=== PATIENT | male | born 1955 | race African-American/Black ===

== ENCOUNTER 2017-03-27 20:40 | Inpatient (IN) | payer BC ==
--- NOTE | 2017-03-27 21:00 | PDOC ---
History of Present Illness - General History Source: Patient, Spouse Exam Limitations: No Limitations - History of Present Illness Initial Comments: 03/27/17 21:20 The patient is a 62 year old male with a significant PMH of recent pacemaker placement (03/04/2017) who presents to the emergency department with a head laceration s/p dizziness and fall shortly before arrival. The patient reports getting up from his couch after hours of watching TV and feeling lightheaded and dizzy, causing him to fall and hit his head on the TV stand. He reports not remembering the impact and waking up on the floor holding his head shortly after the fall. The patient reports having a pacemaker placed on 03/04/2017 and being placed on blood thinners (Prasugrel) for an upcoming cardiac catheterization. The patient denies taking any alcohol or drugs prior to the fall. The patient denies eating dinner before arrival. The patient denies chest pain, shortness of breath, and headache. Denies fever, chills, nausea, vomit, diarrhea and constipation. Denies dysuria, frequency, urgency and hematuria. Allergies: NKA Past surgical history: Pacemaker placement (03/04). Social history: No reported cigarette, alcohol, or drug use. Pacemaker: [place] [employer] Pacemaker [id number] Serial No. [id number] (Ref #: ) PCP: Dr. Jamila Pedro Graphic Production Artist: Dr. Yuan Bettencourt <Ashutosh Cannon - Last Filed: 03/27/17 23:51> <Samanta Mcfadden - Last Filed: 03/28/17 00:31> - General Chief Complaint: Syncope/Near Syncope Stated Complaint: FAINTED Time Seen by Provider: 03/27/17 20:50 Past History <Ashutosh Cannon - Last Filed: 03/27/17 23:51> - Past Medical History COPD: No HTN: Yes Hypercholesterolemia: Yes - Surgical History Cardiac Surgery: Yes (pacemaker 03/15/17) - Suicide/Smoking/Psychosocial Hx Smoking History: Never smoked <Samanta Mcfadden - Last Filed: 03/28/17 00:31> - Past Medical History Allergies/Adverse Reactions: Allergies Allergy/AdvReac Type Severity Reaction Status Date / Time No Known Allergies Allergy Verified 03/27/17 20:43 Home Medications: Ambulatory Orders Atorvastatin Ca [Lipitor] 40 mg PO HS 11/26/17 Carvedilol [Coreg -] 3.125 mg PO BID 03/27/17 Prasugrel Hydrochloride [Effient -] 10 mg PO DAILY 03/27/17 Review of Systems - Review of Systems Able to Perform ROS?: Yes Comments:: 03/27/17 21:21 GENERAL/CONSTITUTIONAL: No fever or chills. No weakness. HEAD, EYES, EARS, NOSE AND THROAT: (+) Back of head laceration. No change in vision. No ear pain or discharge. No sore throat. CARDIOVASCULAR: No chest pain or shortness of breath. RESPIRATORY: No cough, wheezing, or hemoptysis. GASTROINTESTINAL: No nausea, vomiting, diarrhea or constipation. GENITOURINARY: No dysuria, frequency, or change in urination. MUSCULOSKELETAL: No joint or muscle swelling or pain. No neck or back pain. SKIN: No rash NEUROLOGIC: (+) Dizziness. (+) Loss of consciousness. No headache, vertigo, or change in strength/sensation. ENDOCRINE: No increased thirst. No abnormal weight change. HEMATOLOGIC/LYMPHATIC: No anemia, easy bleeding, or history of blood clots. ALLERGIC/IMMUNOLOGIC: No hives or skin allergy. <Ashutosh Cannon - Last Filed: 03/27/17 23:51> *Physical Exam - Vital Signs Last Vital Signs Temp Pulse Resp BP Pulse Ox 98.1 F 134 H 18 102/80 97 03/27/17 20:47 03/27/17 20:47 03/27/17 20:47 03/27/17 20:47 03/27/17 20:47 - Physical Exam Comments: 03/27/17 21:21 GENERAL: Awake, alert, and fully oriented, in no acute distress HEAD: (+) 3 in. linear horizontal occipital laceration. EYES: PERRLA, EOMI, sclera anicteric, conjunctiva clear ENT: Auricles normal inspection, hearing grossly normal, nares patent, oropharynx clear without exudates. Moist mucosa NECK: Normal ROM, supple, no lymphadenopathy, JVD, or masses LUNGS: Breath sounds equal, clear to auscultation bilaterally. No wheezes, and no crackles HEART: Regular rate and rhythm, normal S1 and S2, no murmurs, rubs or gallops ABDOMEN: Soft, nontender, normoactive bowel sounds. No guarding, no rebound. No masses EXTREMITIES: Normal range of motion, no edema. No clubbing or cyanosis. No cords, erythema, or tenderness NEUROLOGICAL: Cranial nerves II through XII grossly intact. Normal speech. SKIN: Warm, Dry, normal turgor, no rashes or lesions noted. <Ashutosh Cannon - Last Filed: 03/27/17 23:51> - Vital Signs Last Vital Signs Temp Pulse Resp BP Pulse Ox 98.1 F 134 H 18 102/80 97 03/27/17 20:47 03/27/17 20:47 03/27/17 20:47 03/27/17 20:47 03/27/17 20:47 <Samanta Mcfadden - Last Filed: 03/28/17 00:31> Procedures - Laceration/Wound Repair Posterior Head Wound Length: 2.6 to 5.0 cm Wound's Depth, Shape: into muscle, linear Irrigated w/ Saline: Yes Betadine Prep: Yes Anesthesia: 1% Lidocaine w/ Epi Amount of Anesthetic (ccs): 10 Wound Repaired With: Sutures Suture Size/Type: 3:0, nylon Number of Sutures: 8 Layer Closure: No Sterile Dressing Applied: Yes <Samanta Mcfadden - Last Filed: 03/28/17 00:31> Heart Score/ECG Review #1 03/27/17 22:00 Vent rate 135 bpm Atrial flutter with 2:1 AV conduction Incomplete right bundle branch block ST & T wave abnormality, consider inferior ischemia ST & T wave abnormality, consider anterior ischemia Abnormal ECG <Ashutosh Cannon - Last Filed: 03/27/17 23:51> ED Treatment Course - LABORATORY CBC & Chemistry Diagram: 03/27/17 21:30 03/27/17 21:30 <Ashutosh Cannon - Last Filed: 03/27/17 23:51> - LABORATORY CBC & Chemistry Diagram: 03/27/17 21:30 03/27/17 21:30 <Samanta Mcfadden - Last Filed: 03/28/17 00:31> Medical Decision Making - Medical Decision Making 03/27/17 21:12 Pt had pacemaker placed on Mar 04; I called the [employer] [facility] to come and query the pacemaker. 03/27/17 21:13 Pt was sitting for hours watching TV, got up to go to bed. Next thing he knows he was on the floor after whacking his occiput on the corner of the TV stand. Unclear if he lost consciousness. Pt has a pacemaker and he is on prasugrel. Pt is due to have a cardiac catheterization - however he is awaiting his new medical insurance to go thru. Pt is hypotensive in the ER, systolic 103; states that he didn't have anything to eat today. 03/27/17 22:25 Pt has rapid afib; but he is hypotensive. We will start with a liter of saline 03/27/17 22: Pt's labs are normal. Pt awaiting Ct scan results. 03/27/17 23:28 Patient Name: VIDA VALENZUELA THIS IS A PRELIMINARY REPORT FROM [employer] CLAIMS REPRESENTATIVE DATE OF SERVICE: 2017-03-27 22:23:53 IMAGES: 155 EXAM: CT head without contrast HISTORY: Rule out bleed. Syncope. Laceration. COMPARISON: None. FINDINGS: 1. 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 White matter changes likely represent changes of chronic post ischemic demyelination/small vessel disease. There is no evidence of intracranial hemorrhage or mass effect. If there is a clinical suspicion of acute cerebral ischemia, MRI of brain would be helpful. 2. The ventricles are normal size. 3. The visualized portions of the orbits, paranasal and mastoid sinuses are notable for partial opacification of the right mastoid sinus There is partial absence of the nasal septum. 4. There is no evidence of acute fracture. 5. There is left occipital scalp soft tissue swelling/hematoma. THIS DOCUMENT HAS BEEN ELECTRONICALLY SIGNED 03/27/17 23:29 Patient Name: VIDA VALENZUELA THIS IS A PRELIMINARY REPORT FROM [employer] CLAIM[employer] REPRESENTATIVE DATE OF SERVICE: 2017-03-27 22:20:45 IMAGES: 295 EXAM: CT CERVICAL SPINE HISTORY: Fracture COMPARISON: None. FINDINGS: Straightening of the curvature. No acute fracture, subluxation or abnormal prevertebral soft tissue swelling noted. Facet joints intact and normally aligned. Spinous processes intact. Underlying degenerative disc disease most severe at C5-6 with severe disc space narrowing and broad based disc herniation indenting the thecal sac and likely causing central spinal stenosis. Mild bilateral neuroforaminal narrowing at C5-6. No neck soft tissue hemorrhage or edema seen. No pneumothorax in the lung apices. Pacemaker wires seen. THIS DOCUMENT HAS BEEN ELECTRONICALLY SIGNED <Samanta Mcfadden - Last Filed: 03/28/17 00:31> *DC/Admit/Observation/Transfer - Attestations Scribe Attestion: 03/27/17 21:22 Documentation prepared by Ashutosh Cannon, acting as adjunct faculty for medical terminology for Samanta Mcfadden MD. <Ashutosh Cannon - Last Filed: 03/27/17 23:51> - Discharge Dispostion Admit: Yes <Samanta Mcfadden - Last Filed: 03/28/17 00:31> Diagnosis at time of Disposition: Syncope, Scalp laceration, Pacemaker, Atrial flutter, Dehydration - Discharge Dispostion Condition at time of disposition: Guarded - Referrals Referrals: STAFF,NOT ON [Primary Care Provider] -
[2017-03-27 21:45] LABS: BASOPHIL 0.8 % (0-2.0); EOSINOPHIL 3.7 % (0-4.5); MCH 29.7 pg (25.7-33.7); MCHC 34.2 g/dl (32.0-35.9); MEAN CELL VOLUME 86.7 fl (80-96); MEAN PLT VOLUME 8.1 fl (7.5-11.1); NEUTROPHILS 70.3 % (42.8-82.8); PLATELET COUNT 249 K/MM3 (134-434); RDW 13.8 % (11.9-15.9); WHITE BLOOD COUNT 7.7 K/mm3 (4.0-10.0)
[2017-03-27] MEDS ORDERED: SODIUM CHLORIDE 0.9% 500 ML INFUS.BAG IV ONE (21:53)
[2017-03-27 22:06] LABS: INR 1.07 (0.82-1.09); PROTHROMBIN TIME (PATIENT) 12.1 SEC (9.98-11.88)
[2017-03-27 22:08] LABS: ALBUMIN 3.4 g/dl (3.4-5.0); ANION GAP 5 (8-16); BILIRUBIN,TOTAL 0.3 mg/dL (0.2-1.0); CALCIUM 8.2 mg/dL (8.5-10.1); CO2 26 mmol/L (21-32); CREATININE 1.3 mg/dL (0.7-1.3); GLUCOSE,RANDOM 113 mg/dL (74-106); SGOT/AST 32 U/L (15-37); SGPT/ALT 49 U/L (12-78); TOT PROT 7.4 g/dl (6.4-8.2)
[2017-03-27 22:11] LABS: ALK PHOS 89 U/L (45-117); CPK 167 IU/L (39-308); TROPONIN I 0.02 ng/ml (0.00-0.05)
[2017-03-27] MEDS ORDERED: LIDOCAINE 1%/EPI 1:100000 (20 ML MULTI DOSE VIAL) ONE (22:43)
--- NOTE | 2017-03-28 00:40 | PN ---
Teaching Attending Note Name of Resident: Zelalem Marcus ATTENDING PHYSICIAN STATEMENT I saw and evaluated the patient. I reviewed the resident's note and discussed the case with the resident. I agree with the resident's findings and plan as documented. SUBJECTIVE: 62 M with pmhx of HTN and HLD who had recent PPM placement 03/04, who presents post syncope. States he went to [facility] 03/03 for shortness of breath and had nuclear stress there which was abnormal and was supposed to have a cath done 04/07 (didn't have it done earlier due to insurance reasons.) States he is not sure why the PPM was placed, but noted he had been placed on Effient after. Noted Chest Pain on 03/03, but none after. States he was getting up from a chair when he felt dizzy, states he then hit his head on his table. No chest pain, pressure or palpitations prior to incident. No fevers, or chills. No headaches or lightheadedness. No N/V/D. States he did not eat much food today. Pacemaker: [place] [email or web address] Pacemaker [id number] Serial No. [id number] -Ref #: PCP: Dr. Jamila Pedro Circus Train Supervisor: Dr. Yuan Bettencourt OBJECTIVE: Physical: VS: Vital Signs Period Temp Pulse Resp BP Sys/Law Pulse Ox Last 24 Hr 98.1 F 134 18 102/80 97 GEN: NAD, Resting in bed, able to speak full sentences HEENT: NCAT, PERRL, Throat without erythema or exudates CARD: TachyRRR S1, S2, PPM on L. Chest RESP: CTAB ABD: BSX4, NTD to palpation EXT: - C/C??E CBCD WBC 7.7 K/mm3 (4.0-10.0) 03/27/17 21:30 RBC 4.61 M/mm3 (4.00-5.60) 03/27/17 21:30 Hgb 13.7 GM/dL (11.7-16.9) 03/27/17 21:30 Hct 40.0 % (35.4-49) 03/27/17 21:30 MCV 86.7 fl (80-96) 03/27/17 21:30 MCHC 34.2 g/dl (32.0-35.9) 03/27/17 21:30 RDW 13.8 % (11.9-15.9) 03/27/17 21:30 Plt Count 249 K/MM3 (134-434) 03/27/17 21:30 MPV 8.1 fl (7.5-11.1) 03/27/17 21:30 CMP Sodium 138 mmol/L (136-145) 03/27/17 21:30 Potassium 4.3 mmol/L (3.5-5.1) 03/27/17 21:30 Chloride 107 mmol/L (98-107) 03/27/17 21:30 Carbon Dioxide 26 mmol/L (21-32) 03/27/17 21:30 Anion Gap 5 (8-16) L 03/27/17 21:30 BUN 18 mg/dL (7-18) 03/27/17 21:30 Creatinine 1.3 mg/dL (0.7-1.3) 03/27/17 21:30 Creat Clearance w eGFR 56.12 (>60) 03/27/17 21:30 Random Glucose 113 mg/dL (74-106) H 03/27/17 21:30 Calcium 8.2 mg/dL (8.5-10.1) L 03/27/17 21:30 Total Bilirubin 0.3 mg/dL (0.2-1.0) 03/27/17 21:30 AST 32 U/L (15-37) 03/27/17 21:30 ALT 49 U/L (12-78) 03/27/17 21:30 Alkaline Phosphatase 89 U/L (45-117) 03/27/17 21:30 Total Protein 7.4 g/dl (6.4-8.2) 03/27/17 21:30 Albumin 3.4 g/dl (3.4-5.0) 03/27/17 21:30 CARDIAC ENZYMES Creatine Kinase 167 IU/L (39-308) 03/27/17 21:30 Troponin I 0.02 ng/ml (0.00-0.05) 03/27/17 21:30 EKG 136 A flutter 2:1, Incomplete right bundle branch block ST & T wave abnormality, consider inferior ischemia ST & T wave abnormality, consider anterior ischemia CXR: PPM in L. chest, no acute process CT HEAD/C- SPINE:FINDINGS: 1. 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 White matter changes likely represent changes of chronic post ischemic demyelination/small vessel disease. There is no evidence of intracranial hemorrhage or mass effect. If there is a clinical suspicion of acute cerebral ischemia, MRI of brain would be helpful. 2. The ventricles are normal size. 3. The visualized portions of the orbits, paranasal and mastoid sinuses are notable for partial opacification of the right mastoid sinus There is partial absence of the nasal septum. 4. There is no evidence of acute fracture. 5. There is left occipital scalp soft tissue swelling/hematoma. Straightening of the curvature. No acute fracture, subluxation or abnormal prevertebral soft tissue swelling noted. Facet joints intact and normally aligned. Spinous processes intact. Underlying degenerative disc disease most severe at C5-6 with severe disc space narrowing and broad based disc herniation indenting the thecal sac and likely causing central spinal stenosis. Mild bilateral neuroforaminal narrowing at C5-6. No neck soft tissue hemorrhage or edema seen. No pneumothorax in the lung apices. Pacemaker wires seN ELECTRONICALLY SIGNED ASSESSMENT AND PLAN: 62 M with pmhx of HTN and HLD who had recent PPM placement 03/04, who presents with loss of concioussness, being admitted for syncope 1.) Syncope- DDx: Cardiogenic vs Neurogenic/vagal - Orthostatic VS - Trend troponin/EKG - Echo/Carotid US - Cardiology consult - Repeat CT - Need Nuclear Stress results from prior hospital - TSH 2.) Head Laceration - Hold Effient - Repeat CT in 12 hours 3.) HLD - C/W Statin 4.) A- Flutter - BB, Echo 4.) HTN - Home meds with Hold orders 5.) Dvt Ppx - SCds
--- NOTE | 2017-03-28 01:21 | HP ---
CHIEF COMPLAINT: Syncope PCP:Dr. Jamila Pedro [employer]bestos Cement Sheet Supervisor: Dr. Yuan Bettencourt HISTORY OF PRESENT ILLNESS: 62 year old male with past medical history of pacemaker placement on 03/04/2017 who presented to the hospital status post a syncopal episode. Patient states he got up from his couch after watching TV and felt dizzy. Patient fell and hit is head on his tv stand. Patient does not remember falling, but states he did not lose consciousness. Patient also states he has not eaten all day. Patient went to [facility] on 03/03 for CP and SOB. Patient had pacemaker placement at that time and has been on Effiant (prasurgel) since. He also had a positive stress test and is scheduled for cardiac catheterization but is waiting for his medical insurance card prior to clearance. Patient denies fever, chills, chest pain, shortness of breath, palpitations, and diaphoresis. ER course was notable for: (1) EKG- Atrial flutter with 2 to 1 conduction. QTC 465, HR 130's (2) CBC, CMP, troponin unremarkable (3) CT head and cervical spine unremarkable Recent Travel: denies PAST MEDICAL HISTORY: As per HPI PAST SURGICAL HISTORY: Appendectomy At age 16 Social History: Smoking: denies Alcohol: denies Drugs: denies Family History: Allergies No Known Allergies Allergy (Verified 03/27/17 20:43) HOME MEDICATIONS: Home Medications Medication Instructions Recorded Atorvastatin Ca [Lipitor] 40 mg PO HS 03/27/17 Carvedilol [Coreg -] 3.125 mg PO BID 03/27/17 Prasugrel Hydrochloride [Effient -] 10 mg PO DAILY 03/27/17 REVIEW OF SYSTEMS CONSTITUTIONAL: Absent: fever, chills, diaphoresis, generalized weakness, malaise, loss of appetite, weight change HEENT: Absent: rhinorrhea, nasal congestion, throat pain, throat swelling, difficulty swallowing, mouth swelling, ear pain, eye pain, visual changes CARDIOVASCULAR: Absent: chest pain, syncope, palpitations, irregular heart rate, lightheadedness , peripheral edema RESPIRATORY: Absent: cough, shortness of breath, dyspnea with exertion, orthopnea, wheezing, stridor, hemoptysis GASTROINTESTINAL: Absent: abdominal pain, abdominal distension, nausea, vomiting, diarrhea, constipation, melena, hematochezia GENITOURINARY: Absent: dysuria, frequency, urgency, hesitancy, hematuria, flank pain, genital pain MUSCULOSKELETAL: Absent: myalgia, arthralgia, joint swelling, back pain, neck pain SKIN: Absent: rash, itching, pallor HEMATOLOGIC/IMMUNOLOGIC: Absent: easy bleeding, easy bruising, lymphadenopathy, frequent infections ENDOCRINE: Absent: unexplained weight gain, unexplained weight loss, heat intolerance, cold intolerance NEUROLOGIC: Absent: headache, focal weakness or paresthesias, dizziness, unsteady gait, seizure, mental status changes, bladder or bowel incontinence PSYCHIATRIC: Absent: anxiety, depression, suicidal or homicidal ideation, hallucinations. PHYSICAL EXAMINATION Vital Signs - 24 hr 03/27/17 20:47 Temperature 98.1 F Pulse Rate 134 H Respiratory 18 Rate Blood Pressure 102/80 O2 Sat by Pulse 97 Oximetry (%) GENERAL: Awake, alert, and fully oriented, in no acute distress. HEAD: Normal with no signs of trauma. EYES: Pupils equal, round and reactive to light, extraocular movements intact, sclera anicteric, conjunctiva clear. No lid lag. EARS, NOSE, THROAT: Ears normal, nares patent, oropharynx clear without exudates. Moist mucous membranes. NECK: Normal range of motion, supple without lymphadenopathy, JVD, or masses. LUNGS: Breath sounds equal, clear to auscultation bilaterally. No wheezes, and no crackles. No accessory muscle use. HEART: Tachycardic, normal S1 and S2 without murmur, rub or gallop. Pacemaker placed on chest, c/d/i ABDOMEN: Soft, nontender, not distended, normoactive bowel sounds, no guarding, no rebound, no masses. No hepatomegaly or splenomegaly. MUSCULOSKELETAL: Normal range of motion at all joints. No bony deformities or tenderness. No CVA tenderness. UPPER EXTREMITIES: 2+ pulses, warm, well-perfused. No cyanosis. No clubbing. No peripheral edema. LOWER EXTREMITIES: 2+ pulses, warm, well-perfused. No calf tenderness. No peripheral edema. NEUROLOGICAL: Cranial nerves II-XII intact. Normal speech. Normal gait. PSYCHIATRIC: Cooperative. Good eye contact. Appropriate mood and affect. SKIN: Warm, dry, normal turgor, no rashes or lesions noted, normal capillary refill. Laboratory Results - last 24 hr 11/26/17 11/26/17 11/26/17 21:30 21:30 21:30 WBC 7.7 RBC 4.61 Hgb 13.7 Hct 40.0 MCV 86.7 MCH 29.7 MCHC 34.2 RDW 13.8 Plt Count 249 MPV 8.1 Neutrophils % 70.3 Lymphocytes % 11.9 Monocytes % 13.3 H Eosinophils % 3.7 Basophils % 0.8 PT with INR 12.10 H INR 1.07 PTT (Actin FS) 32.1 Sodium Potassium Chloride Carbon Dioxide Anion Gap BUN Creatinine Creat Clearance w eGFR Random Glucose Calcium Total Bilirubin AST ALT Alkaline Phosphatase Creatine Kinase Creatine Kinase Index CK-MB (CK-2) Troponin I Total Protein Albumin 03/27/17 21:30 WBC RBC Hgb Hct MCV MCH MCHC RDW Plt Count MPV Neutrophils % Lymphocytes % Monocytes % Eosinophils % Basophils % PT with INR INR PTT (Actin FS) Sodium 138 Potassium 4.3 Chloride 107 Carbon Dioxide 26 Anion Gap 5 L BUN 18 Creatinine 1.3 Creat Clearance w eGFR 56.12 Random Glucose 113 H Calcium 8.2 L Total Bilirubin 0.3 AST 32 ALT 49 Alkaline Phosphatase 89 Creatine Kinase 167 Creatine Kinase Index 1.2 CK-MB (CK-2) 2.119 Troponin I 0.02 Total Protein 7.4 Albumin 3.4 ASSESSMENT/PLAN: 62-year-old male with past medical history of the pacemaker placement in March of this year and positive stress test admitted for syncopal episode. #Syncope with head trauma, Cardiogenic vs vasovagal -Repeat CT head in the morning -Orthostatic vital signs -Echocardiogram -Carotid Doppler -Lipid profile -Trend troponins and EKG x 3 -Cardiology consult, Dr. Scott -Obtain records from [facility] regarding pacemaker placement, Stress test, and reason for anticoagulation. -Hold Prasugrel at this time given head trauma -Continue Coreg 3.125 mg and Lipitor 40 mg po HS #FEN/GI -No fluids indicated at this time -Electrolytes within normal limits -Sodium controlled diet #PPx -SCDs both legs -No G.I. prophylaxis indicated Visit type - Emergency Visit Emergency Visit: Yes Care time: The patient presented to the Emergency Department on the above date and was hospitalized for further evaluation of their emergent condition. - New Patient This patient is new to me today: Yes Date on this admission: 03/28/17 - Critical Care Critical Care patient: No
[2017-03-28] MEDS ORDERED: CARVEDILOL 3.125 MG TABLET (FP) PO SCH ×2 (01:23→10:00)
[2017-03-28] MEDS ORDERED: METOPROLOL TARTRATE 25 MG TABLET (FP) PO ONE (01:24)
[2017-03-28] MEDS ORDERED: METOPROLOL TARTRATE 25 MG TABLET (FP) ONE (01:33)
[2017-03-28 06:46] LABS: BASOPHIL 0.4 % (0-2.0); MCHC 33.6 g/dl (32.0-35.9); MEAN CELL VOLUME 86.3 fl (80-96); MEAN PLT VOLUME 8.1 fl (7.5-11.1); NEUTROPHILS 77.8 % (42.8-82.8); PLATELET COUNT 242 K/MM3 (134-434); RDW 13.9 % (11.9-15.9); WHITE BLOOD COUNT 11.8 K/mm3 (4.0-10.0)
[2017-03-28 07:07] LABS: ANION GAP 7 (8-16); CALCIUM 8.1 mg/dL (8.5-10.1); CO2 26 mmol/L (21-32); GLUCOSE,RANDOM 90 mg/dL (74-106)
[2017-03-28 07:13] LABS: CHOLESTEROL 157 mg/dL (50-200)
--- NOTE | 2017-03-28 11:45 | CON.CARD ---
Consult Consult Specialty:: Cardiology Referred by:: Hospitalist Medicine Reason for Consultation:: Syncope - History of Present Illness Chief Complaint: Syncope History of Present Illness: 62 M with pmhx of CAD with abnl MPI, HTN, HLD, AV block s/p PPM placement 2016, who presents post syncope preceded by typical prodromal sxs of nausea, dizziness, diaphoresis and flushing without visual scotoma after getting up from seated position, sustained closed head trauma, HCT negative. States he went to [facility] 03/03 for shortness of breath and had nuclear stress there which was abnormal and was supposed to have a cath done 04/07 (didn't have it done earlier due to insurance reasons.) He denies associated chest pain, pressure or palpitations, orthopnea, PND or LE edema. Pacer interrogation unrevealing for events. Pacemaker: [employer] Pacemaker [id number] Serial No. [id number] -Ref #: PCP: Dr. Jamila Pedro [employer] Pilot: Dr. Yuan Bettencourt - History Source History Provided By: Patient Limitations to Obtaining History: No Limitations - Past Medical History Cardio/Vascular: Yes: CAD - Past Surgical History Past Surgical History: Yes: Permanent Pacemaker - Smoking History Smoking history: Never smoked Home Medications - Allergies Allergies/Adverse Reactions: Allergies Allergy/AdvReac Type Severity Reaction Status Date / Time No Known Allergies Allergy Verified 03/27/17 20:43 - Home Medications Home Medications: Ambulatory Orders Atorvastatin Ca [Lipitor] 40 mg PO HS 03/27/17 Carvedilol [Coreg -] 3.125 mg PO BID 03/27/17 Prasugrel Hydrochloride [Effient -] 10 mg PO DAILY 03/27/17 Review of Systems - Review of Systems Constitutional: reports: Diaphoresis Gastrointestinal: reports: Nausea Neurological: reports: Dizziness, Syncope Vital Signs: Vital Signs Temperature 98.4 F 03/28/17 08:30 Pulse Rate 85 03/28/17 08:30 Respiratory Rate 20 03/28/17 08:30 Blood Pressure 124/60 03/28/17 08:30 O2 Sat by Pulse Oximetry (%) 96 03/28/17 08:30 Constitutional: Yes: No Distress, Calm Neck: Yes: Supple Respiratory: Yes: Regular, CTA Bilaterally Gastrointestinal: Yes: Normal Bowel Sounds, Soft Cardiovascular: Yes: Regular Rate and Rhythm JVD: No Carotid Bruit: No Heart Sounds: Yes: S1, S2 Edema: No - Other Data Labs, Other Data: CBC, BMP 03/28/17 06:05 03/28/17 06:05 INR, PTT INR 1.07 (0.82-1.09) 03/27/17 21:30 Troponin, BNP 03/27/17 03/28/17 03/28/17 21:30 02:20 06:05 Troponin I 0.02 < 0.02 < 0.02 Troponin, BNP 03/27/17 03/28/17 03/28/17 21:30 02:20 06:05 Troponin I 0.02 < 0.02 < 0.02 EKG 136 A flutter 2:1, Incomplete right bundle branch block Imaging - Results Chest X-ray: Report Reviewed (CXR: PPM in L. chest, no acute process) Cat Scan: Report Reviewed (CT HEAD/C- SPINE:FINDINGS: 1. 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 White matter changes likely represent changes of chronic post ischemic demyelination/small vessel disease. There is no evidence of intracranial hemorrhage or mass effect. If there is a clinical suspicion of acute cerebral ischemia, MRI of brain would be helpful. 2. The ventricles are normal size. 3. The visualized portions of the orbits, paranasal and mastoid sinuses are notable for partial opacification of the right mastoid sinus There is partial absence of the nasal septum. 4. There is no evidence of acute fracture. 5. There is left occipital scalp soft tissue swelling/hematoma. Straightening of the curvature. No acute fracture, subluxation or abnormal prevertebral soft tissue swelling noted. Facet joints intact and normally aligned. Spinous processes intact. Underlying degenerative disc disease most severe at C5-6 with severe disc space narrowing and broad based disc herniation indenting the thecal sac and likely causing central spinal stenosis. Mild bilateral neuroforaminal narrowing at C5-6. No neck soft tissue hemorrhage or edema seen. No pneumothorax in the lung apices. Pacemaker wires seN ELECTRONICALLY SIGNED) Ultrasound: Report Reviewed (carotid U/S - Negative for stenosis) EKG: Report Reviewed (EKG: Rapid aflutter @ 135) Problem List - Problems (1) Cerebrovascular disease Code(s): I67.9 - CEREBROVASCULAR DISEASE, UNSPECIFIED (2) Hypertensive cardiomyopathy Code(s): I11.9 - HYPERTENSIVE HEART DISEASE WITHOUT HEART FAILURE; I43 - CARDIOMYOPATHY IN DISEASES CLASSIFIED ELSEWHERE Qualifiers: Heart failure presence: without heart failure Qualified Code(s): I11.9 - Hypertensive heart disease without heart failure; I43 - Cardiomyopathy in diseases classified elsewhere; I43 - Cardiomyopathy in diseases classified elsewhere; I43 - Cardiomyopathy in diseases classified elsewhere; I43 - Cardiomyopathy in diseases classified elsewhere (3) Hyperlipidemia Code(s): E78.5 - HYPERLIPIDEMIA, UNSPECIFIED Qualifiers: Hyperlipidemia type: pure hypercholesterolemia Qualified Code(s): E78.00 - Pure hypercholesterolemia, unspecified; E78.0 - Pure hypercholesterolemia (4) Coronary artery disease Code(s): I25.10 - ATHSCL HEART DISEASE OF [place] CORONARY ARTERY W/O ANG PCTRS Qualifiers: Coronary Disease-Associated Artery/Lesion type: [place] artery [place] vs. transplanted heart: [place] heart Associated angina: without angina Qualified Code(s): I25.10 - Atherosclerotic heart disease of [place] coronary artery without angina pectoris (5) Abnormal pharmacologic myocardial perfusion study Code(s): R94.30 - ABNORMAL RESULT OF CARDIOVASCULAR FUNCTION STUDY, UNSP (6) Pacemaker Code(s): Z95.0 - PRESENCE OF CARDIAC PACEMAKER (7) Scalp laceration Code(s): S01.01XA - LACERATION WITHOUT FOREIGN BODY OF SCALP, INITIAL ENCOUNTER Qualifiers: Encounter type: subsequent encounter Qualified Code(s): S01.01XD - Laceration without foreign body of scalp, subsequent encounter (8) Syncope Code(s): R55 - SYNCOPE AND COLLAPSE Qualifiers: Syncope type: vasovagal syncope Qualified Code(s): R55 - Syncope and collapse (9) Paroxysmal atrial flutter Code(s): I48.92 - UNSPECIFIED ATRIAL FLUTTER (10) Symptomatic advanced heart block Code(s): I44.1 - ATRIOVENTRICULAR BLOCK, SECOND DEGREE Assessment/Plan 1. Syncope with typical prodromal sxs c/w vasovagal etiology 2. Cerebrovascular disease 3. CAD, abnormal MPI 4. Closed head trauma with neg HCT x 2 5. HTN/HCVD 6. Hyperlipidemia 7. AV block s/p PPM 03/04/2017 8. Paroxysmal rapid atrial flutter->SR [id number] P:1. Check orthostatic VS, ruled out for MT, f/u echocardiogram already ordered , check TSH and lipid panel 2. Increase carvedilol 6.25 bid, continue Lipitor 40 qhs, change Effient to Eliquis 5 bid given elevated stroke risk score 3. Patient to f/u with Dr. Bettencourt for [facility] to assess severity of CAD at [facility] , PPM f/u and possible aflutter ablation with Dr. Daryl Vaughn at [facility]. 4. Thank you for consultative opportunity
--- NOTE | 2017-03-28 13:36 | EKG ---
Test Reason : Blood Pressure : / mmHG Vent. Rate : 077 BPM Atrial Rate : 077 BPM P-R Int : 000 ms QRS Dur : 100 ms QT Int : 392 ms P-R-T Axes : 060 -04 -38 degrees QTc Int : 443 ms Ventricular-paced rhythm INCOMPLETE RIGHT BUNDLE BRANCH BLOCK ABNORMAL ECG WHEN COMPARED WITH ECG OF 28-MAR-2017 02:54, ELECTRONIC VENTRICULAR PACEMAKER RHYTHM IS SEEN Confirmed by BETITO ORTIZ, LEONA ([id number]) on 03/28/2017 1:36:05 PM Referred By: Confirmed By:LEONA CISSE MD
--- NOTE | 2017-03-28 13:59 | EKG ---
Test Reason : Blood Pressure : / mmHG Vent. Rate : 093 BPM Atrial Rate : 250 BPM P-R Int : 000 ms QRS Dur : 104 ms QT Int : 364 ms P-R-T Axes : 062 025 -05 degrees QTc Int : 452 ms ATRIAL FLUTTER WITH VARIABLE A-V BLOCK INCOMPLETE RIGHT BUNDLE BRANCH BLOCK NONSPECIFIC ST AND T WAVE ABNORMALITY ABNORMAL ECG WHEN COMPARED WITH ECG OF 27-MAR-2017 21:47, VENT. RATE HAS DECREASED Confirmed by LEONA CISSE MD ([id number]) on 03/28/2017 1:59:09 PM Referred By: Confirmed By:LEONA CISSE MD
--- NOTE | 2017-03-28 14:03 | EKG ---
Test Reason : Blood Pressure : / mmHG Vent. Rate : 135 BPM Atrial Rate : 270 BPM P-R Int : 000 ms QRS Dur : 100 ms QT Int : 310 ms P-R-T Axes : 045 -09 -27 degrees QTc Int : 465 ms ATRIAL FLUTTER WITH 2:1 A-V CONDUCTION INCOMPLETE RIGHT BUNDLE BRANCH BLOCK ABNORMAL ECG NO PREVIOUS ECGS AVAILABLE Confirmed by LEONA CISSE MD ([id number]) on 03/28/2017 2:03:07 PM Referred By: Confirmed By:LEONA CISSE MD
--- NOTE | 2017-03-28 15:47 | MSN ---
Progress Note (short form) - Note Progress Note: SUBJECTIVE: Patient was seen and examined at bedside this morning. He states that he still feels some pain in the back of his head from his fall last night. Otherwise, he currently feels better than yesterday. Denies confusion, dizziness, lightheadedness, chest pain, SOB, abdominal pain, nausea, vomiting, or diarrhea. OBJECTIVE: Vital Signs Period Temp Pulse Resp BP Sys/Law Pulse Ox Last 24 Hr 97.7 F-98.4 F 82-134 16-20 102-125/58-88 96-98 Physical Exam: * General: AAO x 3; no acute distress * Head: Kerlex bandage wrapped circumstantially around head * Eyes: PEERL, EOM intact * ENT: nares patent; moist mucous membranes * Cardiovascular: Regularly irregular rhythm; no murmurs, rubs, gallops * Lungs: mild wheezing auscultated at the bases b/l; no rhonchi, rales * Abdominal: normoactive bowel sounds; soft, nontender, nondistended; no guarding or rigidity * Extremities: no peripheral edema * Neuro: CN II-XII intact; no focal neurological deficits Labs: 03/27/17 03/27/17 03/27/17 21:30 21:30 21:30 WBC 7.7 RBC 4.61 Hgb 13.7 Hct 40.0 MCV 86.7 MCHC 34.2 RDW 13.8 Plt Count 249 Neutrophils % 70.3 Lymphocytes % 11.9 Monocytes % 13.3 H Eosinophils % 3.7 Basophils % 0.8 INR 1.07 Sodium 138 Potassium 4.3 Chloride 107 Carbon Dioxide 26 Anion Gap 5 L BUN 18 Creatinine 1.3 03/28/17 03/28/17 06:05 06:05 WBC 11.8 H D RBC 4.45 Hgb 12.9 Hct 38.4 MCV 86.3 MCHC 33.6 RDW 13.9 Plt Count 242 Neutrophils % 77.8 Lymphocytes % 8.9 D Monocytes % 11.9 H Eosinophils % 1.0 Basophils % 0.4 INR Sodium 139 Potassium 4.4 Chloride 106 Carbon Dioxide 26 Anion Gap 7 L BUN 16 Creatinine 1.0 D Imaging/tests: * EKG (03/28/17): atrial flutter with 2:1 conduction, HR 136; Incomplete right bundle branch block * CT head (03/27/17): negative for acute intracranial pathology * CT head w/out contrast (03/28/17): negative for acute intracranial pathology ASSESSMENT/PLAN: Patient is a 62 yo male with a PMH of pacemaker placement (03/04/17) who was admitted for a syncopal episode possibly 2/2 cardiogenic and/or vasovagal etiologies. Patient reports falling and hitting his head on a tv stand. Patient notes a previous hx of syncopal episodes (7-8 total episodes). Except for this syncopal episode, every previous episode of syncope was preceded by a coughing spell. 1) Syncope possibly 2/2 cardiogenic and/or vasovagal etiologies * Orthostatic vital signs negative * Supine: BP 103/80, HR 103 * Sitting: BP 107/82, HR 93 * CT head w/out contrast: negative for acute intracranial process x 2 * Carotid Doppler U/S (03/28/17): mild artherosclerotic disease with no evidence of hemodynamically significant stenosis * Troponin negative x 3 * Lipid profile stable * LDL 90; Triglycerides 77; HDL 52; Total cholesterol 157 * F/u TSH * F/u echocardiogram * Cardiology following (Dr. Avila) * Mild leukocytosis noted (WBC 11.3) --> f/u CBC tomorrow morning 2) AV block; s/p pacemeaker placement (03/04/17) * Patient reports symptoms of chest pain and SOB that started one month ago which prompted him to visit hospital. Workup was performed and nuclear stress test was positive. Pacemaker was subsequently placed at [facility] * Obtain medical records regarding pacemaker placement from [facility] * Patient reports that he is scheduled for left heart catherization with Dr. Yuan Bettencourt at [facility] Interventional Cardiology([phone]) to assess severity of CAD * Possible atrial flutter ablation with Dr. Daryl Vaughn at [facility] * Pacemaker was interrogated this morning --> f/u report 3) Paroxsymal atrial flutter * [id number] score = 3 * Change Effient to Eliquis 5mg PO BID due to patient's elevated stroke risk score 4) HTN * Increase Carvedilol from 3.125mg daily to 6.25mg PO BID 5) HLD * Continue Lipitor 40mg PO HS 6) DVT Prophylaxis * Continue SCDs
[2017-03-28 18:09] VITALS: BMI 25.8
--- NOTE | 2017-03-28 18:43 | EKG ---
Test Reason : Blood Pressure : / mmHG Vent. Rate : 084 BPM Atrial Rate : 084 BPM P-R Int : 000 ms QRS Dur : 102 ms QT Int : 400 ms P-R-T Axes : 075 -15 -41 degrees QTc Int : 472 ms Ventricular-paced rhythm ABNORMAL ECG WHEN COMPARED WITH ECG OF 28-MAR-2017 09:38, VENT. RATE HAS INCREASED BY 7 BPM Confirmed by LEONA CISSE MD ([id number]) on 03/28/2017 6:43:20 PM Referred By: Confirmed By:LEONA CISSE MD
--- NOTE | 2017-03-28 20:12 | PN ---
Teaching Attending Note Name of Resident: Romel Rodas ATTENDING PHYSICIAN STATEMENT I saw and evaluated the patient. I reviewed the resident's note and discussed the case with the resident. I agree with the resident's findings and plan as documented. SUBJECTIVE: Patient states that he had an syncopal episode and hit his head with a laceration that was sutured in ED. OBJECTIVE: Vital Signs Temperature 98.4 F 03/28/17 14:53 Pulse Rate 80 03/28/17 16:15 Respiratory Rate 18 03/28/17 16:15 Blood Pressure 118/70 03/28/17 16:15 O2 Sat by Pulse Oximetry (%) 98 03/28/17 16:15 CBCD WBC 11.8 K/mm3 (4.0-10.0) H D 03/28/17 06:05 RBC 4.45 M/mm3 (4.00-5.60) 03/28/17 06:05 Hgb 12.9 GM/dL (11.7-16.9) 03/28/17 06:05 Hct 38.4 % (35.4-49) 03/28/17 06:05 MCV 86.3 fl (80-96) 03/28/17 06:05 MCHC 33.6 g/dl (32.0-35.9) 03/28/17 06:05 RDW 13.9 % (11.9-15.9) 03/28/17 06:05 Plt Count 242 K/MM3 (134-434) 03/28/17 06:05 MPV 8.1 fl (7.5-11.1) 03/28/17 06:05 CMP Sodium 139 mmol/L (136-145) 03/28/17 06:05 Potassium 4.4 mmol/L (3.5-5.1) 03/28/17 06:05 Chloride 106 mmol/L (98-107) 03/28/17 06:05 Carbon Dioxide 26 mmol/L (21-32) 03/28/17 06:05 Anion Gap 7 (8-16) L 03/28/17 06:05 BUN 16 mg/dL (7-18) 03/28/17 06:05 Creatinine 1.0 mg/dL (0.7-1.3) D 03/28/17 06:05 Creat Clearance w eGFR 56.12 (>60) 03/27/17 21:30 Random Glucose 90 mg/dL (74-106) D 03/28/17 06:05 Calcium 8.1 mg/dL (8.5-10.1) L 03/28/17 06:05 Total Bilirubin 0.3 mg/dL (0.2-1.0) 03/27/17 21:30 AST 32 U/L (15-37) 03/27/17 21:30 ALT 49 U/L (12-78) 03/27/17 21:30 Alkaline Phosphatase 89 U/L (45-117) 03/27/17 21:30 Total Protein 7.4 g/dl (6.4-8.2) 03/27/17 21:30 Albumin 3.4 g/dl (3.4-5.0) 03/27/17 21:30 CARDIAC ENZYMES Creatine Kinase 167 IU/L (39-308) 03/27/17 21:30 Troponin I < 0.02 ng/ml (0.00-0.05) 03/28/17 15:15 Current Medications Generic Name Dose Route Start Last Admin Trade Name Alfredq PRN Reason Stop Dose Admin Apixaban 5 mg 03/28/17 22:00 Eliquis - PO BID [facility] Atorvastatin Calcium 40 mg 03/28/17 22:00 Lipitor - PO HS [facility] Carvedilol 6.25 mg 03/28/17 12:16 Coreg - PO BID [facility] Home Medications Medication Instructions Recorded Atorvastatin Ca [Lipitor] 40 mg PO HS 03/27/17 Carvedilol [Coreg -] 3.125 mg PO BID 03/27/17 Prasugrel Hydrochloride [Effient -] 10 mg PO DAILY 03/27/17 PE: per resident's notes ASSESSMENT AND PLAN: 62-year-old male with past medical history of the pacemaker placement in March of this year and positive stress test admitted for syncopal episode. #Syncope with head trauma, Cardiogenic vs vasovagal , cardiology consult appreciated, admitted in TEle # Head Laceration s/p sutures in ED. Hold Effient # HLD continue Statin # A- Flutter on BB Coreg , Echo is pending # HTN continue Dvt Ppx: SCDs
[2017-03-28] MEDS ORDERED: CARVEDILOL 3.125 MG TABLET (FP) ONE (21:41)
[2017-03-28] MEDS ORDERED: ATORVASTATIN CA 40 MG TABLET (FP) ONE (21:41)
[2017-03-28] MEDS ORDERED: ATORVASTATIN CA 40 MG TABLET (FP) PO SCH (22:00)
[2017-03-28] MEDS ORDERED: METOPROLOL TARTRATE 5 MG/5 ML VIAL IVPUSH ONE (22:12)
[2017-03-28] MEDS: CARVEDILOL 3.125 MG TABLET (FP) PO SCH (22:32)
[2017-03-28] MEDS: APIXABAN 5 MG TABLET PO SCH (22:32)
--- NOTE | 2017-03-28 23:09 | PN ---
Physical Exam: SUBJECTIVE: Patient seen and examined by me this AM - No overnight events. Pt has no complaints, anxious to go home. - Denies any [place]/dizziness, fever/chills, CP, SOB, cough, N/V, abdominal pain, dysuria, diarrhea/constipation, peripheral weakness/numbness OBJECTIVE: Vital Signs Intake & Output 03/25/17 03/26/17 03/27/17 03/28/17 23:59 23:59 23:59 23:59 Weight 76.204 kg 77.111 kg Period Temp Pulse Resp BP Sys/Law Pulse Ox Last 24 Hr 97.7 F-98.4 F 80-133 16-20 103-130/58-88 96-98 GENERAL: The patient is awake, alert, and fully oriented, in no acute distress. HEAD: Bandage around head. No other signs of trauma or bruising EYES: PERRL, extraocular movements intact, sclera anicteric, conjunctiva clear. No ptosis. ENT: Ears normal, nares patent, oropharynx clear without exudates, moist mucous membranes. NECK: Trachea midline, full range of motion, supple. No JVD noted LUNGS: Breath sounds equal, clear to auscultation bilaterally, no wheezes, no crackles, no accessory muscle use. HEART: Regular rate and rhythm, S1, S2 without murmur, rub or gallop. PPM on anterior chest wall LUQ. ABDOMEN: Soft, nontender, nondistended, normoactive bowel sounds, no guarding, no rebound Upper EXTREMITIES: 2+ pulses, warm, well-perfused, no edema. Lower extremities: 2+ dp, pt pulses. WWP. No edema NEUROLOGICAL: Cranial nerves II through XII grossly intact. Normal speech, gait normal. PSYCH: Normal mood, appropriate affect. Laboratory Results - last 24 hr CBC, BMP 03/28/17 06:05 03/28/17 06:05 03/28/17 03/28/17 03/28/17 02:20 06:05 06:05 WBC 11.8 H D RBC 4.45 Hgb 12.9 Hct 38.4 MCV 86.3 MCH 29.0 MCHC 33.6 RDW 13.9 Plt Count 242 MPV 8.1 Neutrophils % 77.8 Lymphocytes % 8.9 D Monocytes % 11.9 H Eosinophils % 1.0 Basophils % 0.4 Sodium 139 Potassium 4.4 Chloride 106 Carbon Dioxide 26 Anion Gap 7 L BUN 16 Creatinine 1.0 D Random Glucose 90 D Calcium 8.1 L Troponin I < 0.02 Triglycerides Cholesterol Total LDL Cholesterol HDL Cholesterol 03/28/17 03/28/17 03/28/17 06:05 06:05 15:15 WBC RBC Hgb Hct MCV MCH MCHC RDW Plt Count MPV Neutrophils % Lymphocytes % Monocytes % Eosinophils % Basophils % Sodium Potassium Chloride Carbon Dioxide Anion Gap BUN Creatinine Random Glucose Calcium Troponin I < 0.02 < 0.02 Triglycerides 77 Cholesterol 157 Total LDL Cholesterol 90 HDL Cholesterol 52 Active Medications Generic Name Dose Route Start Last Admin Trade Name Freq PRN Reason Stop Dose Admin Apixaban 5 mg 03/28/17 22:00 03/28/17 22:32 Eliquis - PO 5 mg BID LATISHA Administration Atorvastatin Calcium 40 mg 03/28/17 22:00 03/28/17 22:32 Lipitor - PO 40 mg HS LATISHA Administration Carvedilol 6.25 mg 03/28/17 12:16 03/28/17 22:32 Coreg - PO 6.25 mg BID LATISHA Administration No recent micro Imaging: C-spine CT 03/27 - The alignment is satisfactory. No gross fracture or subluxation is seen. Moderate degenerative disc disease at C5-C6 and C6-C7 level , as described above. Correlate for further evaluation and follow-up. CXR 03/27 - Pacemaker. No acute chest pathology. Head CT 03/27 - No significant interval change or acute intracranial pathology is identified. Postop changes in the nasal cavity again noted with mild mucosal thickening in the ethmoid air cells. Right mastoid effusion rule out mastoiditis. Interval slight decrease of previously described extracranial soft tissue swelling/hematoma over left side of the occipital bone Carotid doppler 03/28 - Mild atherosclerotic disease with no evidence of hemodynamically significant stenoses. Head CT 03/28 - No significant interval change or acute intracranial pathology is identified. Postop changes in the nasal cavity again noted with mild mucosal thickening in the ethmoid air cells. Right mastoid effusion rule out mastoiditis. Interval slight decrease of previously described extracranial soft tissue swelling/hematoma over left side of the occipital bone ASSESSMENT/PLAN: 62 yo man w/ pmh of complete heart block (s/p PPM placement 03/04 at [facility]), multiple vasovagal syncopal episodes, presents to ED after syncopal episode and headstrike on TV stand. #Syncopal episode w/ head laceration - CT Head negative for acute bleed, intracranial mass. Pt endorses prior hx of 7-8 vasovagal syncopal episodes during coughing fits. - f/u echo results - f/u medical records from [facility] - TSH pending - Carotid doppler negative for significant stenosis - Trops neg x3 - Cardiology consulted (Seen by Dr. Avila) - f/u lipid profile - Prasugrel switched to eliquis 5mg bid - Retrieve PPM interrogation report #CAD - Continue home lipitor 40mg - Carvedilol increased to 6.25 mg BID per cards - Scheduled for [facility] w/ Dr. Judson Bettencourt ([phone]) at [facility] -prior hx of positive stress test #A-flutter - Rate control w/ carvedilol - Cardiac monitoring - AC w/ eliquis mg BID #PPX - Eliquis, SCDs for DVT - No GI ppx #FEN Fluids: PO hydration Eletrolytes: Daily BMPs Nutrition: Cardiac/low sodium diet Dispo: Telemetry floor for further monitoring with likely discharge tomorrow and outpt follow-up with cardiology Plan discussed with attending, Dr. Deandre Rodas, PGY1 Visit type - Emergency Visit Emergency Visit: Yes ED Registration Date: 03/28/17 Care time: The patient presented to the Emergency Department on the above date and was hospitalized for further evaluation of their emergent condition. - New Patient This patient is new to me today: Yes Date on this admission: 03/28/17 - Critical Care Critical Care patient: No
[2017-03-29 07:15] VITALS: TEMP 97.9
--- NOTE | 2017-03-29 07:20 | PN ---
Physical Exam: SUBJECTIVE: Patient seen and examined by me - No major events overnight. No complaints, anxious to go home. - Denies any fever/chills, palpitations, [place]/dizziness, N/V, CP, Cough, sob, dysuria, diarrhea, new rashes or peripheral weakness/numbness - Pt seen by cardiology team, Dr. Scott. Cleared for discharge with scheduled f/u for cardiac cath with Dr. Bettencourt () OBJECTIVE: Vital Signs Intake & Output 03/26/17 03/27/17 03/28/17 03/29/17 23:59 23:59 23:59 23:59 Intake Total 120 Balance 120 Weight 76.204 kg 77.111 kg Period Temp Pulse Resp BP Sys/Law Pulse Ox Last 24 Hr 97.7 F-98.9 F 80-130 16-20 93-130/58-80 96-99 GENERAL: The patient is awake, alert, and fully oriented, in no acute distress. HEAD: Still with bandage around head. No other signs of trauma or bruising. ENT: Ears normal, nares patent, oropharynx clear without exudates, moist mucous membranes. NECK: Trachea midline, full range of motion, supple. No JVD noted LUNGS: Trace rhonchi in RLL, no wheezes, no crackles, no accessory muscle use. HEART: Regular rate and rhythm, S1, S2 without murmur, rub or gallop. PPM on anterior chest wall LUQ. ABDOMEN: Soft, nontender, nondistended, normoactive bowel sounds, no guarding, no rebound Upper EXTREMITIES: 2+ pulses, warm, well-perfused, no edema. Lower extremities: 2+ dp, pt pulses. WWP. No edema NEUROLOGICAL: Cranial nerves II through XII grossly intact. Normal speech, gait normal. PSYCH: Normal mood, appropriate affect. Laboratory Results - last 24 hr 03/28/17 03/28/17 03/28/17 06:05 06:05 15:15 Troponin I < 0.02 < 0.02 Triglycerides 77 Cholesterol 157 Total LDL Cholesterol 90 HDL Cholesterol 52 Active Medications Generic Name Dose Route Start Last Admin Trade Name Freq PRN Reason Stop Dose Admin Apixaban 5 mg 03/28/17 22:00 03/28/17 22:32 Eliquis - PO 5 mg BID LATISHA Administration Atorvastatin Calcium 40 mg 03/28/17 22:00 03/28/17 22:32 Lipitor - PO 40 mg HS LATISHA Administration Carvedilol 6.25 mg 03/28/17 12:16 03/28/17 22:32 Coreg - PO 6.25 mg BID LATISHA Administration No micro Imaging: C-spine CT 03/27 - The alignment is satisfactory. No gross fracture or subluxation is seen. Moderate degenerative disc disease at C5-C6 and C6-C7 level , as described above. Correlate for further evaluation and follow-up. CXR 03/27 - Pacemaker. No acute chest pathology. Head CT 03/27 - No significant interval change or acute intracranial pathology is identified. Postop changes in the nasal cavity again noted with mild mucosal thickening in the ethmoid air cells. Right mastoid effusion rule out mastoiditis. Interval slight decrease of previously described extracranial soft tissue swelling/hematoma over left side of the occipital bone Carotid doppler 03/28 - Mild atherosclerotic disease with no evidence of hemodynamically significant stenoses. Head CT 03/28 - No significant interval change or acute intracranial pathology is identified. Postop changes in the nasal cavity again noted with mild mucosal thickening in the ethmoid air cells. Right mastoid effusion rule out mastoiditis. Interval slight decrease of previously described extracranial soft tissue swelling/hematoma over left side of the occipital bone ECHO 03/28 - mild MR, TR. LV grossly normal. No evidence of . ASSESSMENT/PLAN: 62 yo man w/ pmh of complete heart block (s/p PPM placement 03/04 at [facility]), multiple vasovagal syncopal episodes, presents to ED after syncopal episode and headstrike on TV stand. Syncopal work-up negative at this point. Echo is grossly normal. OK'ed by cardiology for discharge and follow-up for [facility] once insurance approves procedure. #Syncopal episode w/ head laceration - CT Head negative for acute bleed, intracranial mass. Pt endorses prior hx of 7-8 vasovagal syncopal episodes during coughing fits. - ECHO - mild MR, TR. LV grossly normal. No evidence of . - TSH 1.57 - Carotid doppler negative for significant stenosis - Trops neg x3 - Cardiology consulted (Seen by Dr. Avila) - f/u lipid profile - eliquis 5mg bid - Retrieve PPM unrevealing for acute syncopal event #CAD - lipitor 40mg - Carvedilol 6.25 mg BID per cards - Needs to schedule LHC w/ Dr. Judson Bettencourt ([phone]) at [facility] once insurance approval - prior hx of positive stress test #A-flutter - Rate control w/ carvedilol - Cardiac monitoring - AC w/ eliquis mg BID #PPX - Eliquis, SCDs for DVT - No GI ppx #leukocytosis - 6.9 this AM - Resolved. - No fever, infectious symptoms #FEN Fluids: PO hydration Eletrolytes: Daily BMPs Nutrition: Cardiac/low sodium diet Dispo: Cleared for discharge by cardiology (Dr. Scott). Will schedule LHC with Dr. Bettencourt pending insurance approval. Plan discussed with attending, Dr. Deandre Rodas, PGY1 Visit type - Emergency Visit Emergency Visit: Yes ED Registration Date: 03/28/17 Care time: The patient presented to the Emergency Department on the above date and was hospitalized for further evaluation of their emergent condition. - New Patient This patient is new to me today: No - Critical Care Critical Care patient: No
[2017-03-29 07:46] LABS: BASOPHIL 0.7 % (0-2.0); EOSINOPHIL 3.3 % (0-4.5); MCH 29.2 pg (25.7-33.7); MCHC 34.1 g/dl (32.0-35.9); MEAN CELL VOLUME 85.5 fl (80-96); MEAN PLT VOLUME 8.4 fl (7.5-11.1); NEUTROPHILS 61.4 % (42.8-82.8); PLATELET COUNT 217 K/MM3 (134-434); RDW 13.6 % (11.9-15.9); WHITE BLOOD COUNT 6.9 K/mm3 (4.0-10.0)
[2017-03-29 08:11] LABS: ANION GAP 6 (8-16); CALCIUM 8.1 mg/dL (8.5-10.1); CO2 26 mmol/L (21-32); GLUCOSE,RANDOM 82 mg/dL (74-106)
--- NOTE | 2017-03-29 08:21 | MSN ---
Progress Note (short form) - Note Progress Note: SUBJECTIVE: Patient was seen and examined at bedside this morning. Overnight, patient reported feeling like his "heart was racing". marketing analytics analyst showed aflutter with heart rate in the 130s. Lopressor 5mg IV push was given. Heart is currently stable in the 80's. Today patient denies palpitations. He still feels mild pain at site of head trauma. Otherwise, patient has no complaints. Denies headache, dizziness, chest pain, SOB, abdominal pain, fever/chills, nausea, vomiting, diarrhea, or dysuria. OBJECTIVE: Vital Signs Period Temp Pulse Resp BP Sys/Law Pulse Ox Last 24 Hr 97.9 F-98.9 F 80-130 18-20 93-130/58-78 96-99 Intake & Output 03/28/17 03/29/17 03/29/17 23:59 07:59 15:59 Intake Total 120 Balance 120 Weight 170 lb Intake: Oral 120 Other: # Unmeasured Voids Void 1 Height 5 ft 8 in Body Mass Index (BMI) 25.8 Weight Measurement Method Estimated by Patient Physical Exam: * General: AAO x 3; no acute distress * Head: Kerlex bandage wrapped circumstantially around head * Eyes: PEERL, EOM intact * ENT: nares patent; moist mucous membranes * Cardiovascular: Regular rate and rhythm; no murmurs, rubs, or gallops * Lungs: clear to auscultation b/l; no wheezing, rhonchi, or rales * Abdominal: normoactive bowel sounds; soft, nontender, nondistended; no guarding or rigidity * Extremities: no peripheral edema * Neuro: CN II-XII intact; no focal neurological deficits Current medications: Home Medications Medication Instructions Recorded Atorvastatin Ca [Lipitor] 40 mg PO HS 03/27/17 Apixaban [Eliquis -] 5 mg PO BID #60 tablet 03/29/17 Carvedilol [Coreg -] 6.25 mg PO BID #120 tablet 03/29/17 Labs: Laboratory Results - last 24 hr 03/28/17 03/29/17 03/29/17 15:15 06:50 06:50 WBC 6.9 D RBC 4.20 Hgb 12.2 Hct 35.9 MCV 85.5 MCH 29.2 MCHC 34.1 RDW 13.6 Plt Count 217 MPV 8.4 Neutrophils % 61.4 D Lymphocytes % 17.6 D Monocytes % 17.0 H Eosinophils % 3.3 D Basophils % 0.7 Sodium 137 Potassium 4.5 Chloride 105 Carbon Dioxide 26 Anion Gap 6 L BUN 20 H D Creatinine 1.0 Random Glucose 82 Calcium 8.1 L Troponin I < 0.02 TSH 1.57 ASSESSMENT/PLAN: Patient is a 62 yo male with a PMH of pacemaker placement (03/04/17) who was admitted for a syncopal episode possibly 2/2 cardiogenic and/or vasovagal etiologies. Patient reports falling and hitting his head on a tv stand. Patient notes a previous hx of syncopal episodes (7-8 total episodes). Except for this syncopal episode, every previous episode of syncope was preceded by a coughing spell. 1) Syncope w/fall and trauma to head * Echocardiogram (03/28/17): normal left ventricle systolic function; mild to moderate mitral and tricuspid regurgitation * Orthostatic vital signs negative * Supine: BP 103/80, HR 103 * Sitting: BP 107/82, HR 93 * CT head w/out contrast: negative for acute intracranial process x 2 * Nylon stitches were used to suture gash wound on back of head --> will need to be removed following discharge. * Carotid Doppler U/S (03/28/17): mild artherosclerotic disease with no evidence of hemodynamically significant stenosis * Troponin negative x 3 * Lipid profile stable * LDL 90; Triglycerides 77; HDL 52; Total cholesterol 157 * TSH 1.57 * Cardiology following (seen by Dr. Avila) * Mild leukocytosis noted yesterday (WBC 11.3) --> now resolved (6.9 today) 2) AV block; s/p pacemeaker placement (03/04/17) * Patient reports symptoms of chest pain and SOB that started one month ago which prompted him to visit hospital. Workup was performed and nuclear stress test was positive. Pacemaker was subsequently placed at [facility] * Obtain medical records regarding pacemaker placement from [facility] * Patient reports that he is scheduled for left heart catherization with Dr. Yuan Bettencourt at [facility] Interventional Cardiology([phone]) to assess severity of CAD * Possible atrial flutter ablation with Dr. Daryl Vaughn at [facility] * Pacemaker was interrogated: showed 2 episodes of vtach (on 03/22/17) with HR as high as 235; 2 episodes of SVT were also found (from time period 03/04/17 - 03/28/17) 3) Paroxsymal atrial flutter * [id number] score = 3 * Per cardio, change Effient to Eliquis 5mg PO BID due to patient's elevated stroke risk score 4) HTN * Per cardio, increase Carvedilol from 3.125mg daily to 6.25mg PO BID 5) HLD * Continue Lipitor 40mg PO HS 6) DVT Prophylaxis * SCDs Dispo: Patient cleared by cardiology. Will be discharged back home with new medication prescriptions. Patient instructed to f/u outpatient with PCP in 7-10 days to remove stitches from back of head. Pending insurance clearance, patient will f/u to schedule LHC with Dr. Bettencourt at [facility].
[2017-03-29 08:22] LABS: THYROID STIMULATING HORMONE 1.57 uIU/ml (0.358-3.74)
[2017-03-29] MEDS: CARVEDILOL 3.125 MG TABLET (FP) PO SCH (09:59)
[2017-03-29] MEDS: APIXABAN 5 MG TABLET PO SCH (09:59)
[2017-03-29 11:24] VITALS: BP 126/68; PULSE 68
--- NOTE | 2017-03-29 11:27 | PN ---
Progress Note, Physician Chief Complaint: Not in distress History of Present Illness: Patient was seen and examined. Awake and alert. Seen in the ER hold. Chart was reviewed Denies chest pain, SOB or palpitations Paroxysmal atrial flutter now in sinus rhythm with demand ventricular pacing - Current Medication List Current Medications: Active Medications Apixaban (Eliquis -) 5 mg PO BID [facility] Last Admin: 03/29/17 09:59 Dose: 5 mg Atorvastatin Calcium (Lipitor -) 40 mg PO HS [facility] Last Admin: 03/28/17 22:32 Dose: 40 mg Carvedilol (Coreg -) 6.25 mg PO BID [facility] Last Admin: 03/29/17 09:59 Dose: 6.25 mg - Objective Vital Signs: Vital Signs Temperature 97.9 F 03/29/17 07:12 Pulse Rate 85 03/29/17 07:12 Respiratory Rate 18 03/29/17 08:24 Blood Pressure 118/78 03/29/17 07:12 O2 Sat by Pulse Oximetry (%) 99 03/29/17 08:24 Neck: Yes: Supple Cardiovascular: Yes: Regular Rate and Rhythm, S1, S2 Respiratory: Yes: CTA Bilaterally Gastrointestinal: Yes: Normal Bowel Sounds, Soft. No: Tenderness Edema: No Additional Findings/Remarks: - Review of Systems Constitutional: denies: Chills, Fever Cardiovascular: denies: Chest Pain, Palpitations. denies: Shortness of Breath Respiratory: denies: Cough, Hemoptysis, Orthopnea, PND, SOB, SOB on Exertion Gastrointestinal: denies: Abdominal Pain, Constipation, Diarrhea, Melena, Nausea , Rectal Bleeding, Vomiting Genitourinary: denies: Dysuria Musculoskeletal: denies: Back Pain, Joint Pain Neurological: denies: Dizziness, Headache, Seizure, (+) Syncope Labs: CBC, BMP 03/29/17 06:50 03/29/17 06:50 INR, PTT INR 1.07 (0.82-1.09) 03/27/17 21:30 Problem List - Problems (1) Abnormal nuclear stress test Code(s): R94.39 - ABNORMAL RESULT OF OTHER CARDIOVASCULAR FUNCTION STUDY (2) Pacemaker Code(s): Z95.0 - PRESENCE OF CARDIAC PACEMAKER (3) Syncope Code(s): R55 - SYNCOPE AND COLLAPSE Qualifiers: Syncope type: vasovagal syncope Qualified Code(s): R55 - Syncope and collapse (4) Coronary artery disease Code(s): I25.10 - ATHSCL HEART DISEASE OF [place] CORONARY ARTERY W/O ANG PCTRS Qualifiers: Coronary Disease-Associated Artery/Lesion type: [place] artery [place] vs. transplanted heart: [place] heart Associated angina: without angina Qualified Code(s): I25.10 - Atherosclerotic heart disease of [place] coronary artery without angina pectoris (5) Hyperlipidemia Code(s): E78.5 - HYPERLIPIDEMIA, UNSPECIFIED Qualifiers: Hyperlipidemia type: pure hypercholesterolemia Qualified Code(s): E78.00 - Pure hypercholesterolemia, unspecified; E78.0 - Pure hypercholesterolemia (6) Symptomatic advanced heart block Code(s): I44.1 - ATRIOVENTRICULAR BLOCK, SECOND DEGREE (7) Paroxysmal atrial flutter Code(s): I48.92 - UNSPECIFIED ATRIAL FLUTTER (8) HTN (hypertension) Code(s): I10 - ESSENTIAL (PRIMARY) HYPERTENSION Qualifiers: Hypertension type: essential hypertension Qualified Code(s): I10 - Essential (primary) hypertension (9) Hypercholesterolemia Code(s): E78.00 - PURE HYPERCHOLESTEROLEMIA, UNSPECIFIED (10) Cerebrovascular disease Code(s): I67.9 - CEREBROVASCULAR DISEASE, UNSPECIFIED Assessment/Plan 1. Syncope with typical prodromal symptoms c/w vasovagal etiology 2. Cerebrovascular disease 3. CAD with abnormal MPI - currently awaits further diagnostic catheterization at [facility] 4. Closed head trauma with neg head CT x 2 5. HTN/HCVD 6. Hyperlipidemia 7. AV block s/p PPM (03/04/2017) 8. Paroxysmal rapid atrial flutter now in sinus rhythm - [id number] PLAN: 1. Transthoracic echocardiography noted - normal LV systolic function, mild to moderate MR, TR 2. Continue Carvedilol 6.25 bid, Lipitor 40 qhs and continue Eliquis 5 bid given elevated stroke risk score - off Effient as it is not indicated 3. Patient to f/u with Dr. Bettencourt for [facility] to assess severity of CAD at [facility] , PPM f/u and possible aflutter ablation with Dr. Daryl Vaughn at [facility]. Patient may be discharged cardiac standpoint and follow up as outlined above. Patient remains hemodynamically stable Discussed with primary team Reginaldo Scott MD
--- NOTE | 2017-03-29 13:24 | DS ---
Physical Exam: SUBJECTIVE: Patient seen and examined by me - No major events overnight. No complaints, anxious to go home. - Denies any fever/chills, palpitations, [place]/dizziness, N/V, CP, Cough, sob, dysuria, diarrhea, new rashes or peripheral weakness/numbness - Pt seen by cardiology team, Dr. Scott. Cleared for discharge with scheduled f/u for cardiac cath with Dr. Bettencourt () OBJECTIVE: Vital Signs Period Temp Pulse Resp BP Sys/Law Pulse Ox Last 24 Hr 97.9 F-98.9 F 68-130 18-20 93-130/58-78 96-99 PHYSICAL EXAM GENERAL: The patient is awake, alert, and fully oriented, in no acute distress. HEAD: Still with bandage around head. No other signs of trauma or bruising. ENT: Ears normal, nares patent, oropharynx clear without exudates, moist mucous membranes. NECK: Trachea midline, full range of motion, supple. No JVD noted LUNGS: Trace rhonchi in RLL, no wheezes, no crackles, no accessory muscle use. HEART: Regular rate and rhythm, S1, S2 without murmur, rub or gallop. PPM on anterior chest wall LUQ. ABDOMEN: Soft, nontender, nondistended, normoactive bowel sounds, no guarding, no rebound Upper EXTREMITIES: 2+ pulses, warm, well-perfused, no edema. Lower extremities: 2+ dp, pt pulses. WWP. No edema NEUROLOGICAL: Cranial nerves II through XII grossly intact. Normal speech, gait normal. PSYCH: Normal mood, appropriate affect. LABS Laboratory Results - last 24 hr CBC, BMP 03/29/17 06:50 03/29/17 06:50 03/28/17 03/29/17 03/29/17 15:15 06:50 06:50 WBC 6.9 D RBC 4.20 Hgb 12.2 Hct 35.9 MCV 85.5 MCH 29.2 MCHC 34.1 RDW 13.6 Plt Count 217 MPV 8.4 Neutrophils % 61.4 D Lymphocytes % 17.6 D Monocytes % 17.0 H Eosinophils % 3.3 D Basophils % 0.7 Sodium 137 Potassium 4.5 Chloride 105 Carbon Dioxide 26 Anion Gap 6 L BUN 20 H D Creatinine 1.0 Random Glucose 82 Calcium 8.1 L Troponin I < 0.02 TSH 1.57 HOSPITAL COURSE: Date of Admission:03/28/17 Date of Discharge: 03/29/17 62 yo man w/ pmh of complete heart block (s/p PPM placement 03/04 at [facility]), multiple vasovagal syncopal episodes, presents to ED after syncopal episode and headstrike on TV stand. Pt stated he tried to stand up suddenly from the couch and passed out, hitting his head on a TV stand. He/family denies post-ictal symptoms and no seizure was witnessed. Pt w/ multiple syncopal episode over past two years, always precipitated by coughing fit. On admission, found to be in a-flutter, taking home carvedilol and prasugrel for unknown reason. Pt PPM was placed on 03/04 at [facility] following diagnosed complete heart block, with presumed atrial and ventricular pacing. PPM was interrogated during admission, however no evidence of acute cardiac event was noted during syncopal episode. Remaining work-up for syncopal episode was unremarkable, with normal carotid doppler test, negative orthostatics, and ECHO w/ normal LV function and no severe valvular dz. Pt was seen by cardiology and home Coreg was increased from 3.125 to 6.25 and he was switched to Eliquis 5mg BID for AC. Pt was later noted to be in NSR with ventricular demand pacing. Pt was entirely asymptomatic during admission. He was cleared for discharge by cardiology, with pending LHC by Dr. Bettencourt at [facility] and possible catheter ablation for a-fib Dr. Vinicius Vaughn at [facility]. -spine CT 03/27 - The alignment is satisfactory. No gross fracture or subluxation is seen. Moderate degenerative disc disease at C5-C6 and C6-C7 level , as described above. Correlate for further evaluation and follow-up. CXR 03/27 - Pacemaker. No acute chest pathology. Head CT 03/27 - No significant interval change or acute intracranial pathology is identified. Postop changes in the nasal cavity again noted with mild mucosal thickening in the ethmoid air cells. Right mastoid effusion rule out mastoiditis. Interval slight decrease of previously described extracranial soft tissue swelling/hematoma over left side of the occipital bone Carotid doppler 03/28 - Mild atherosclerotic disease with no evidence of hemodynamically significant stenoses. Head CT 03/28 - No significant interval change or acute intracranial pathology is identified. Postop changes in the nasal cavity again noted with mild mucosal thickening in the ethmoid air cells. Right mastoid effusion rule out mastoiditis. Interval slight decrease of previously described extracranial soft tissue swelling/hematoma over left side of the occipital bone ECHO 03/28 - mild MR, TR. LV grossly normal. No evidence of . Cultures: No micro Consults: Cardiology - Seen by Dr. Scott, Dr. Avila. - Patient to f/u with Dr. Bettencourt for LHC to assess severity of CAD at [facility], PPM f/u and possible aflutter ablation with Dr. Daryl Vaughn at [facility]. Pt was not approved for Eliquis rx by his insurance. He was provided with 30 day free trial of Eliquis, sent to his pharmacy at [phone]. If he requires more, pt was instructed to return to hospital and receive a $10 copay card for rx. Pt stable and cleared for discharge with follow-up with Dr. Bettencourt for scheduling LHC and further management. Minutes to complete discharge: 35 Discharge Summary Reason For Visit: SYNCOPE,PRESENCE OF CARDIAC PACEMAKER Condition: Stable - Instructions Diet, Activity, Other Instructions: You were evaluated for syncope and treated for a head laceration. The following changes have been made to your medications, please take as instructed: 1. Increase: carvedilol 6.25mg 1 tablet twice daily 2. Change Effient to Eliquis 5mg 1 tablet twice daily Prescriptions have been sent to your pharmacy. Please speak with your primary care doctor or your support analyst for refills. Continue taking Lipitor 40mg 1 tablet by mouth every night. Please follow up with Dr. Bettencourt to assess severity of your coronary artery disease at [facility], and with Dr. Daryl Vaughn for possible aflutter ablation at [facility]. Please keep your head wound clean and dry. Follow-up with your pcp to have your stitches removed in 7-10 days. If you develop chest pain, palpitations, trouble breathing, syncope, develop a fever or any new symptoms please return to the hospital. If your head wound becomes red, started to develop discharge or bleed please return to the hospital. Referrals: STAFF,NOT ON [Primary Care Provider] - Disposition: HOME - Home Medications Comprehensive Discharge Medication List: Ambulatory Orders Atorvastatin Ca [Lipitor] 40 mg PO HS 03/27/17 Apixaban [Eliquis -] 5 mg PO BID #60 tablet 03/29/17 Carvedilol [Coreg -] 6.25 mg PO BID #120 tablet 03/29/17 Problem List - Problems (1) Atrial flutter Code(s): I48.92 - UNSPECIFIED ATRIAL FLUTTER (2) Pacemaker Code(s): Z95.0 - PRESENCE OF CARDIAC PACEMAKER (3) Syncope Code(s): R55 - SYNCOPE AND COLLAPSE Qualifiers: Syncope type: vasovagal syncope Qualified Code(s): R55 - Syncope and collapse (4) Coronary artery disease Code(s): I25.10 - ATHSCL HEART DISEASE OF [place] CORONARY ARTERY W/O ANG PCTRS Qualifiers: Coronary Disease-Associated Artery/Lesion type: [place] artery [place] vs. transplanted heart: [place] heart Associated angina: without angina Qualified Code(s): I25.10 - Atherosclerotic heart disease of [place] coronary artery without angina pectoris This patient is new to me today: No Emergency Visit: Yes ED Registration Date: 03/28/17 Care time: The patient presented to the Emergency Department on the above date and was hospitalized for further evaluation of their emergent condition. Critical Care patient: No - Discharge Referral Referred to [facility] Med [facility] No
--- NOTE | 2017-03-29 21:40 | PN ---
Teaching Attending Note Name of Resident: Romel Rodas ATTENDING PHYSICIAN STATEMENT I saw and evaluated the patient. I reviewed the resident's note and discussed the case with the resident. I agree with the resident's findings and plan as documented. SUBJECTIVE: Patient is feeling better today , ready to go home. OBJECTIVE: Vital Signs Temperature 97.9 F 03/29/17 07:12 Pulse Rate 68 03/29/17 11:22 Respiratory Rate 20 03/29/17 11:22 Blood Pressure 126/68 03/29/17 11:22 O2 Sat by Pulse Oximetry (%) 99 03/29/17 11:22 CBCD WBC 6.9 K/mm3 (4.0-10.0) D 03/29/17 06:50 RBC 4.20 M/mm3 (4.00-5.60) 03/29/17 06:50 Hgb 12.2 GM/dL (11.7-16.9) 03/29/17 06:50 Hct 35.9 % (35.4-49) 03/29/17 06:50 MCV 85.5 fl (80-96) 03/29/17 06:50 MCHC 34.1 g/dl (32.0-35.9) 03/29/17 06:50 RDW 13.6 % (11.9-15.9) 03/29/17 06:50 Plt Count 217 K/MM3 (134-434) 03/29/17 06:50 MPV 8.4 fl (7.5-11.1) 03/29/17 06:50 CMP Sodium 137 mmol/L (136-145) 03/29/17 06:50 Potassium 4.5 mmol/L (3.5-5.1) 03/29/17 06:50 Chloride 105 mmol/L (98-107) 03/29/17 06:50 Carbon Dioxide 26 mmol/L (21-32) 03/29/17 06:50 Anion Gap 6 (8-16) L 03/29/17 06:50 BUN 20 mg/dL (7-18) H D 03/29/17 06:50 Creatinine 1.0 mg/dL (0.7-1.3) 03/29/17 06:50 Creat Clearance w eGFR 56.12 (>60) 03/27/17 21:30 Random Glucose 82 mg/dL (74-106) 03/29/17 06:50 Calcium 8.1 mg/dL (8.5-10.1) L 03/29/17 06:50 Total Bilirubin 0.3 mg/dL (0.2-1.0) 03/27/17 21:30 AST 32 U/L (15-37) 03/27/17 21:30 ALT 49 U/L (12-78) 03/27/17 21:30 Alkaline Phosphatase 89 U/L (45-117) 03/27/17 21:30 Total Protein 7.4 g/dl (6.4-8.2) 03/27/17 21:30 Albumin 3.4 g/dl (3.4-5.0) 03/27/17 21:30 CARDIAC ENZYMES Creatine Kinase 167 IU/L (39-308) 03/27/17 21:30 Troponin I < 0.02 ng/ml (0.00-0.05) 03/28/17 15:15 Home Medications Medication Instructions Recorded Atorvastatin Ca [Lipitor] 40 mg PO HS 03/27/17 Apixaban [Eliquis -] 5 mg PO BID #60 tablet 03/29/17 Carvedilol [Coreg -] 6.25 mg PO BID #120 tablet 03/29/17 PE: per resident's notes ASSESSMENT AND PLAN: 62-year-old male with past medical history of the pacemaker placement in March of this year and positive stress test admitted for syncopal episode. #Syncope with head trauma s/p sutures in ED. Hold Effient. cardiology consult appreciated # AV block s/p PPM (03/04/2017) # Paroxysmal rapid atrial flutter now in sinus rhythm - [id number], started the patient on Eliquis 5mg po bid .Continue with Coreg 6.25mg po bid , lipitor 40mg op qhs. Patient to f/u with Dr. Bettencourt for [facility] to assess severity of CAD at [facility], PPM f/u and possible aflutter ablation with Dr. Daryl Vaughn at [facility]. 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
== END 2017-03-29 11:23 | disposition home or self-care (01) | DRG 310 ==
LOC: JER 20:40 → JERBED 03-28 00:31 → UNDOADMIN 03-28 00:33 → JERBED 03-28 00:33
PROVIDERS: ADMIT Internal Medicine; ATTEND Internal Medicine
DX: I48.92 Unspecified atrial flutter (principal); E78.5 Hyperlipidemia, unspecified; I11.9 Hypertensive heart disease without heart failure; I44.2 Atrioventricular block, complete; S01.81XA Laceration without foreign body of other part of head, initial encounter; W18.39XA Other fall on same level, initial encounter; Y93.89 Activity, other specified; Y92.098 Other place in other non-institutional residence as the place of occurrence of the external cause; I25.10 Atherosclerotic heart disease of native coronary artery without angina pectoris; Z86.73 Personal history of transient ischemic attack (TIA), and cerebral infarction without residual deficits; Z95.0 Presence of cardiac pacemaker
CPT/HCPCS: 36415; 70450-TC; 71010-TC; 72125-TC; 80048; 80053; 80061; 82550; 82553; 83721; 84443; 84484; 85025; 85610; 85730; 93005; 93010; 93306-TC; 93880-TC; 99285-25

== ENCOUNTER 2017-04-13 11:29 | Emergency (ER) | payer BC ==
[2017-04-13 11:47] VITALS: BP 108/70; PULSE 89; TEMP 98; BMI 25.0
--- NOTE | 2017-04-13 12:57 | PDOC ---
Suture Removal/Wound Check HPI - History of Present Illness Chief Complaint: Suture/Staple Removal(Here) Stated Complaint: SUTURE REMOVAL Time Seen by Provider: 04/13/17 12:43 History Source: Yes: Patient Exam Limitations: Yes: No Limitations [facility] Treatment Type of procedure performed on last visit: Yes: Laceration Repair (sutured ~ 10 days - had no complaints) Tetanus Immunization: Yes: Up to Date Antibiotics Prescribed: No Past History - Travel Traveled outside of the country in the last 30 days: No Close contact w/someone who was outside of country & ill: No - Past Medical History Allergies/Adverse Reactions: Allergies Allergy/AdvReac Type Severity Reaction Status Date / Time No Known Allergies Allergy Verified 04/13/17 11:46 Home Medications: Ambulatory Orders Atorvastatin Ca [Lipitor] 40 mg PO HS 03/27/17 Apixaban [Eliquis -] 5 mg PO BID #60 tablet 03/29/17 Carvedilol [Coreg -] 6.25 mg PO BID #120 tablet 03/29/17 Cardiac Disorders: Yes COPD: No HTN: Yes Hypercholesterolemia: Yes - Surgical History Cardiac Surgery: Yes (pacemaker 03/15/17, STENT) - Suicide/Smoking/Psychosocial Hx Smoking History: Never smoked Hx Alcohol Use: No Drug/Substance Use Hx: No Substance Use Type: None Suture Removal/Wound Check PE - Physical Exam Laceration/Wound Check Symptoms: reports: None Current Severity Level: None Pain Localization: None *Review of Systems - Review of Systems Able to Perform ROS?: Yes Constitutional: Yes: See HPI. No: Symptoms Reported HEENTM: Yes: See HPI. No: Symptoms Reported Musculoskeletal: No: Symptoms Reported Medical Decision Making - Medical Decision Making 04/13/17 12:55 7 sutures removed with no incident *DC/Admit/Observation/Transfer Diagnosis at time of Disposition: Encounter for removal of sutures - Discharge Dispostion Disposition: HOME Condition at time of disposition: Stable Admit: No - Referrals Referrals: STAFF,NOT ON [Primary Care Provider] - - Patient Instructions - Post Discharge Activity
== END 2017-04-13 12:57 | disposition home or self-care (01) ==
LOC: JERFT 11:29
DX: Z48.02 Encounter for removal of sutures (principal)
CPT/HCPCS: 99281-25